=== PATIENT | female | born 1980 | race Caucasian/White ===

== ENCOUNTER → 2016-04-11 | Outpatient (CLI) | payer BC ==
[~2016-04-11] MED LIST: MTR600X PO; PRENTAB26 PO
--- NOTE | 2016-04-11 10:46 | DIAGNOSTIC IMAGING REPORT ---
LEFT FOOT MIN 3 VIEWS ROUTINE CLINICAL HISTORY: Left foot pain COMPARISON: None. DISCUSSION: No acute fractures are visualized. There is a corticated ossicle at the level of the dorsal aspect of the navicular. This is felt to be old. There are no erosive or destructive changes. There is a small plantar calcaneal spur IMPRESSION: 1. No acute fractures 2. No evidence of erosive disease 3. Plantar calcaneal spur 4. Ossicle at the level of the dorsal aspect of the navicular. This is felt to be chronic Electronically signed by: Randy Griggs M.D. 04/11/2016 10:44 AM
== END | disposition home or self-care (01) ==
LOC: C.RAD1850 10:24
PROVIDERS: ATTEND Family Medicine
DX: M79.672 Pain in left foot (principal); M77.32 Calcaneal spur, left foot

== ENCOUNTER → 2017-01-04 | Outpatient (CLI) | payer BC | END | disposition home or self-care (01) | LOC: C.PAPS 14:16 | PROVIDERS: ATTEND Obstetrics & Gynecology | DX: Z01.419 Encounter for gynecological examination (general) (routine) without abnormal findings (principal) ==

== ENCOUNTER → 2017-05-08 | Outpatient (CLI) | payer BC | END | disposition home or self-care (01) | LOC: C.LAB 09:28 | PROVIDERS: ATTEND Obstetrics & Gynecology | DX: Z32.00 Encounter for pregnancy test, result unknown (principal) ==

== ENCOUNTER → 2017-05-16 | Outpatient (CLI) | payer BC | END | disposition home or self-care (01) | LOC: C.LAB 09:32 | PROVIDERS: ATTEND Obstetrics & Gynecology | DX: Z32.00 Encounter for pregnancy test, result unknown (principal) ==

== ENCOUNTER → 2017-05-20 | Outpatient (CLI) | payer BC | END | disposition home or self-care (01) | LOC: C.LAB 09:26 | PROVIDERS: ATTEND Obstetrics & Gynecology | DX: Z32.00 Encounter for pregnancy test, result unknown (principal) ==

== ENCOUNTER → 2017-05-22 | Outpatient (CLI) | payer BC | LOC: C.LAB 09:30 | PROVIDERS: ATTEND Obstetrics & Gynecology | DX: O20.0 Threatened abortion (principal); Z3A.00 Weeks of gestation of pregnancy not specified ==

== ENCOUNTER → 2017-06-25 | Outpatient (CLI) | payer BC ==
[2017-06-25 12:19] LABS: BASO % 0.3 %; BASO ABS # 0.03 K/uL (0-0.2); EOS % 1.2 %; EOS ABS # 0.13 K/uL (0-0.5); HEMATOCRIT 39.2 % (37-47); HEMOGLOBIN 13.5 g/dL (12.0-16.0); IG# 0.03 K/uL (0.00-0.02); LYMPH % 23.1 %; LYMPH ABS # 2.45 K/uL (1.2-3.4); MEAN CELL VOLUME 90.7 fL (80-100); MEAN CORPUSCULAR HEMOGLOBIN 31.3 pg (25-34); MEAN CORPUSCULAR HGB CONC 34.4 g/dl (32-36); MEAN PLATELET VOLUME 11.1 fL (7.4-10.4); MONO % 5.7 %; MONO ABS # 0.61 K/uL (0.11-0.59); NEUT % 69.4 %; NEUT ABS # 7.36 K/uL (1.4-6.5); PLATELET COUNT 248 K/uL (130-400); RED CELL DISTRIBUTION WIDTH CV 13.2 % (11.5-14.5); WHITE BLOOD COUNT 10.61 K/uL (4.8-10.8)
== END | disposition home or self-care (01) ==
LOC: C.LAB1850 10:08
PROVIDERS: ATTEND Obstetrics & Gynecology
DX: Z01.818 Encounter for other preprocedural examination (principal)

== ENCOUNTER 2017-06-26 06:21 | Day surgery (SDC) | payer BC ==
[2017-06-24 15:59] VITALS: BMI 28.0
[~2017-06-26] VITALS: Ht 177.8 cm; Wt 87.7 kg
[~2017-06-26 06:21] MED LIST changes: +LACTATED RINGER'S 1000ML 1,000 ML IV SCH; -MTR600X PO
[2017-06-26 06:45] VITALS: BP 138/74; PULSE 74; TEMP 37.7; O2SAT 100; Ht 177.8 cm; Wt 87.7 kg
--- NOTE | 2017-06-26 07:47 | History & Physical Bridge Note ---
H&P Re-Evaluation Bridge Note: I have examined the patient, reviewed the History & Physical and in the interval since the performance of the History & Physical I have noted the following changes of clinical significance: No changes noted
[2017-06-26] MEDS ORDERED: LIDOCAINE HCL 2% 2 ML VIAL (20MG/ML) ONE (08:23)
[2017-06-26] MEDS ORDERED: ONDANSETRON INJ 2 MG/ML 2 ML VIAL ONE (08:23)
[2017-06-26] MEDS ORDERED: DEXAMETHASONE SOD INJ 4 MG/ML VIAL ONE (08:23)
[2017-06-26] MEDS ORDERED: MIDAZOLAM HCL 1 MG/ML 2ML VIAL ONE (08:23)
[2017-06-26] MEDS ORDERED: FENTANYL CITRATE INJ 50 MCG/1 ML 2 ML VIAL ONE (08:23)
[2017-06-26] MEDS ORDERED: PROPOFOL IV EMULSION 10 MG/ML 20 ML VIAL IV ONE (08:23)
[2017-06-26] MEDS ORDERED: OXYTOCIN INJ 10 UNITS/ML VIAL ONE (08:57)
--- NOTE | 2017-06-26 08:58 | [facility] Post Operative Brief Note ---
Immediate Operative Summary Operative Date Jun 26, 2017. Pre-Operative Diagnosis Missed Post-Operative Diagnosis Same Procedure(s) Performed Dilation and Evacuation Surgeon Dr Rubi Trader Surgeon(s) None Estimated Blood Loss 100ml Findings Consistent with Post-Op Diagnosis Specimens A. products of conception Drains None Anesthesia Type General Complication(s) none Disposition Accompanied Pt To Recover: no Disposition: Recovery Room / PACU
[2017-06-26] MEDS ORDERED: ONDANSETRON INJ 2 MG/ML 2 ML VIAL IV PRN ×2 (09:00)
[2017-06-26] MEDS ORDERED: KETOROLAC TROMETHAMINE 30 MG/ML VIAL IV. PRN ×2 (09:00)
[2017-06-26] MEDS ORDERED: PROMETHAZINE HCL INJ 25 MG in SODIUM CHLORIDE 0.9% 50ML 50 ML IV PRN (09:00)
[2017-06-26] MEDS ORDERED: IBUPROFEN 600 MG TAB PO PRN (09:00)
[2017-06-26] MEDS ORDERED: OXYCODONE/ACETAMINOPHEN 5-325 TAB PO PRN ×2 (09:00)
[2017-06-26] MEDS ORDERED: FENTANYL CITRATE INJ 50 MCG/1 ML 2 ML VIAL IV PRN (09:00)
[2017-06-26] MEDS ORDERED: ATROPINE SULFATE 0.1 MG/ML 5ML SYR IV PRN (09:00)
[2017-06-26] MEDS ORDERED: MTR600X PO (09:01)
--- NOTE | 2017-06-26 09:01 | Discharge Instructions ---
Discharge Instructions Date of Service Jun 26, 2017. Admission Reason for Admission: Missed Discharge Discharge Diagnosis / Problem: mab Discharge Goals Goal(s): Routine recovery after surgery Activity Recommendations Activity Limitations: per Instructions/Follow-up section . Instructions / Follow-Up Instructions / Follow-Up ACTIVITY RECOMMENDATIONS: * Avoid tampons, douching, hot tubs, pools, and intercourse until bleeding has stopped. * May shower as usual. * No strenuous activity for 24-48 hours. After 24-48 hours, you may do anything you feel like doing (driving and sports are okay). SPECIAL CARE INSTRUCTIONS: Special Diet: * Mild nausea may occur in the immediate post-operative period. * Take clear liquids such as tea, cola or bouillon until all nausea has subsided; you may then resume your normal diet. Special Care: * Light bleeding and vaginal spotting can last from a few days to 3-4 weeks. Call your doctor if bleeding becomes heavier than the heaviest part of your period. * Check your temperature twice a day for one week. If it goes above 100.4 degrees Fahrenheit (38.0 Celsius), notify your doctor. * Call your doctor's office for an appointment for 6 weeks after your surgery. FOLLOW-UP VISIT: Call your doctor's office for an appointment for 6 weeks after your surgery. Current Hospital Diet Patient's current hospital diet: Discharge Diet Recommended Diet: Regular Diet Procedures Procedures Performed: Dilation and Evacuation Pending Studies Studies pending at discharge: no Medical Emergencies . Who to Call and When: Medical Emergencies: If at any time you feel your situation is an emergency, please call 911 immediately. . Non-Emergent Contact Non-Emergency issues call your: Coach Wirer . . "Provider Documentation" section prepared by Zach Rubi. .
[2017-06-26 09:55] VITALS: BP 138/67; PULSE 72; TEMP 37.2; O2SAT 99
[2017-06-26] MEDS ORDERED: OXYTOCIN INJ 20 UNITS in SODIUM CHLORIDE 0.9% 1000ML 1,000 ML IV SCH (10:00)
[2017-06-26] MEDS ORDERED: DOXYCYCLINE HYCLATE 100 MG CAP PO ONE (10:00)
[2017-06-26 10:25] VITALS: BP 118/59; PULSE 77; O2SAT 99
[2017-06-26 10:55] VITALS: BP 136/52; PULSE 70; TEMP 37; O2SAT 97
--- NOTE | 2017-06-26 11:36 | Anesthesiology Progress Note ---
Anesthesia Post Op Note Date & Time Jun 26, 2017 at 11:36 Vital Signs Pain Intensity: 3 Vital Signs Past 12 Hours Date Time Temp Pulse Resp B/P (MAP) Pulse Ox O2 Delivery O2 Flow Rate FiO2 06/26/17 10:55 37 70 18 136/52 97 Room Air 06/26/17 10:25 77 18 118/59 99 Room Air 06/26/17 09:55 37.2 72 18 138/67 99 Room Air 06/26/17 09:45 36.8 06/26/17 09:38 84 19 98 06/26/17 09:38 85 19 06/26/17 09:36 141/71 06/26/17 09:33 83 24 100 06/26/17 09:33 84 24 06/26/17 09:31 142/84 06/26/17 09:28 68 24 06/26/17 09:28 66 24 100 06/26/17 09:26 150/86 06/26/17 09:23 83 21 06/26/17 09:23 83 21 100 06/26/17 09:21 153/93 06/26/17 09:18 83 19 06/26/17 09:18 83 19 100 06/26/17 09:16 153/94 06/26/17 09:13 108 17 100 06/26/17 09:13 108 17 06/26/17 09:11 152/101 06/26/17 09:09 135/79 06/26/17 09:08 37.2 65 16 135/79 100 Oxymask 10 06/26/17 06:45 37.7 74 18 138/74 (95) 100 Room Air Notes Mental Status: alert / awake / arousable, participated in evaluation Pt Amnestic to Procedure: Yes Nausea / Vomiting: adequately controlled Pain: adequately controlled Airway Patency, RR, SpO2: stable & adequate BP & HR: stable & adequate Hydration State: stable & adequate Anesthetic Complications: no major complications apparent
--- NOTE | 2017-06-26 11:41 | OPERATIVE REPORT ---
DATE OF OPERATION: 06/26/2017 PREOPERATIVE DIAGNOSIS: Missed . POSTOPERATIVE DIAGNOSIS: Same. PROCEDURE: Dilatation and evacuation. SURGEON: Dr. Rubi. SERVICE GIRL: None. ESTIMATED BLOOD LOSS: 100 mL FINDINGS: Consistent with postop diagnosis. SPECIMENS: Products of conception. DRAINS: None. ANESTHETIC: General. COMPLICATIONS: None. DISPOSITION: Recovery room. Leslye was given a general anesthetic, prepped and draped in dorsal lithotomy position in [facility]. Bladder drained. Uterus examined and found to be slightly anteverted, 8 weeks in size gestation. Weighted speculum placed in the vagina, Allis clamp on the anterior lip of the cervix. Cervix carefully and methodically dilated starting with a #13 dilator and progressing to a #31 dilator sequentially. At this stage, we then placed a 10 mm curved curet and were able to evacuate the contents using suction. Once I felt the products of conception had been removed, performed a sharp curettage and could find no more products of conception. At this stage, IV Pitocin was started. Instruments removed from the cervix and vagina. Bleeding was minimal. The patient was sent to recovery in stable condition. I attest to the content of the Intraoperative Record and any orders documented therein. Any exception s are noted below.
== END 2017-06-26 11:12 | disposition home or self-care (01) ==
LOC: C.ACU 06:21
PROVIDERS: ATTEND Obstetrics & Gynecology
DX: O02.1 Missed abortion (principal); Z98.890 Other specified postprocedural states; Z90.89 Acquired absence of other organs; Z82.49 Family history of ischemic heart disease and other diseases of the circulatory system; Z83.3 Family history of diabetes mellitus; Z84.89 Family history of other specified conditions

== ENCOUNTER 2019-02-12 07:54 | Inpatient (IN) ==
[2019-02-12] MEDS ORDERED: OXYTOCIN 30 UNITS/500 ML BAG IV PRN ×3 (08:05→18:12)
[2019-02-12 08:21] LABS: Hematocrit (blood only) 37.3 % (37-47); Hemoglobin 12.8 g/dL (12.0-16.0); Mean Corpuscular Hemoglobin 32.4 pg (25-34); Mean Corpuscular Volume 94.4 fL (80-100); Mean Platelet Volume 9.9 fL (7.4-10.4); Platelet Count 235 K/uL (130-400); RDW Coefficient of Variation 13.6 % (11.5-14.5); RDW Standard Deviation 46.9 fL (36.4-46.3); Red Blood Count 3.95 M/uL (4.2-5.4); White Blood Count 11.69 K/uL (4.8-10.8)
[2019-02-12 08:28] LABS: Mean Corpuscular Hgb Conc 34.3 g/dL (32-36)
[2019-02-12] MEDS: LACTATED RINGER'S 1,000 ML IV PRN ×3 (09:08→15:20)
--- NOTE | 2019-02-12 09:08 | History & Physical Report ---
Date of Service February 12, 2019 Assessment & Plan (1) : Patient had presented last night for mcintyre bulb at my recommendation, but last night's physican felt like her cervix was stretchable and that mcintyre bulb may not be necessary. Therefore, she was discharged to home and brought back this morning. Per his exam, she is 2cm this AM. Will start pitocin, plan to AROM when able, anticipate . History of Present Illness Chief Complaint: IOL Primary Care Provider: AVILA Bedoya 38yo @ 41 08/12 presents for IOL for postdates. complicated by advanced maternal age, history of gHTN in prior . In this , BPs have been normal. Allergies Allergy/AdvReac Type Severity Reaction Status Date / Time No Known Drug Allergies Allergy Unknown ` Verified 02/12/19 08:11 Home Medications Home Medications Medication Instructions Recorded Confirmed Type PNV cmb#95-ferrous fumarate-FA 1 tab PO DAILY 02/12/19 02/12/19 History [] aspirin 81 mg PO DAILY 02/12/19 02/12/19 History Patient History Medical History Antepartum complication of Gastric ulcer Surgical History History of oral surgery S/P arthroscopic knee surgery S/P dilation and curettage S/P tonsillectomy Family History Father Hypertension Heart disease FH: thromboembolic disease Mother Thyroid disorder Unknown Heart disease Diabetes Social History Preferred Language: Afghan Communication Ability: Effective Beliefs That Will Affect Care: Yazidism Yazidism Beliefs: Hinduism marital status: Current Living Situation: Spouse and Family Other Information That Helps Us Care for You: No Feels Safe at Home: Yes Safety Concerns: Feels Safe At This Time Smoking Status: Never smoker Hx Alcohol Use: No Hx Substance Use: No Review of Systems All systems reviewed & are unremarkable except as noted in HPI & below Physical Exam Physical Exam: FHT Cat 1 [place] no ctx Constitutional: WD/WN, vitals as above Respiratory: normal respiratory effort, lungs clear to auscultation no respiratory distress Cardiovascular: Rate/Rhythm: regular rate and regular rhythm Gastrointestinal (Abdomen): Inspection/Auscultation: abdomen normal to inspection Percussion/Palpation: abdomen soft; abdomen nontender Gravid. No s/s chorio or abruption. Skin: no rashes, warm and dry Psychiatric: A+Ox3, euthymic affect Results & Data Vital Signs (Past 12 Hours) Vital Signs Temp Pulse Resp BP 02/12/19 08:19 36.9 C 78 18 143/85 H 02/12/19 08:08 78 143/85 H
[2019-02-12] MEDS ORDERED: BUPIVACAINE 0.25% 30 ML VIAL ONE (10:31)
[2019-02-12] MEDS ORDERED: fentaNYL citrate 100 MCG/2 ML VIAL ONE (10:31)
[2019-02-12] MEDS ORDERED: ePHEDrine sulfate 50 MG/ML AMP ONE (10:31)
[2019-02-12] MEDS ORDERED: fentaNYL 2MCG/ML ROPIV 1.25MG/ML 100 ML BAG EPI ONE (10:32)
[2019-02-12] MEDS ORDERED: INFLUENZA VIRUS QUAD VACCINE 0.5 ML SYR IM ONE (10:45)
[2019-02-12] MEDS ORDERED: INFLUENZA ADMINISTRATION CHARGE ONE (10:45)
[2019-02-12] MEDS ORDERED: DiphenhydrAMINE HCL 50 MG/ML VIAL IV PRN (11:50)
[2019-02-12] MEDS ORDERED: NALOXONE HCL 0.4 MG/1 ML VIAL/CARP IV PRN (11:50)
[2019-02-12] MEDS ORDERED: NALBUPHINE HCL INJ 10 MG/ML AMP IV PRN (11:50)
[2019-02-12] MEDS ORDERED: ONDANSETRON INJ 2 MG/ML 2 ML VIAL IV PRN (11:50)
[2019-02-12] MEDS ORDERED: ePHEDrine sulfate 50 MG/ML AMP IV PRN (11:50)
[2019-02-12] MEDS ORDERED: PROMETHAZINE HCL 6.25 MG in SODIUM CHLORIDE 0.9% 50 ML IV PRN (11:50)
[2019-02-12] MEDS ORDERED: NALOXONE HCL 1 MG in SODIUM CHLORIDE 0.9% 1000ML 1,000 ML IV PRN (11:50)
[2019-02-12] MEDS ORDERED: fentaNYL 2MCG/ML ROPIV 1.25MG/ML 100 ML BAG EPI PRN (11:50)
--- NOTE | 2019-02-12 11:50 | Anesthesiology Consultation ---
Date of Service February 12, 2019 Assessment & Plan (1) Encounter for pre-operative examination: Chart Review Chart Review: Patient NOT seen in Pre Admission Testing and Acceptable Risk for Labor Epidural ASA ASA2 Proposed Anesthesia Anesthesia Type: Labor Epidural Risk / Benefits Reviewed With: PT / POA / Parent / Guardian, Accepts Plan and Informed Consent Obtained History Height/Weight Height: 5 ft 10 in Weight: 113.398 kg Allergies Allergy/AdvReac Type Severity Reaction Status Date / Time No Known Drug Allergies Allergy Unknown ` Verified 02/12/19 08:11 Medications Home Medications Medication Instructions Recorded Confirmed Last Taken PNV cmb#95-ferrous fumarate-FA 1 tab PO DAILY 02/12/19 02/12/19 02/11/19 [] aspirin 81 mg PO DAILY 02/12/19 02/12/19 02/11/19 Active Medications Generic Name Dose Route Start Last Admin Trade Name Freq PRN Reason Stop Dose Admin Lactated Ringer's 1,000 mls @ 125 mls/hr 02/12/19 08:05 02/12/19 11:12 Lr IV 02/14/19 08:04 999 mls/hr .Q8H PRN Administration L&D Protocol Protocol Oxytocin 30 units in 500 mls @ 7 mls/hr 02/12/19 08:05 02/12/19 11:00 Pitocin IV 02/14/19 08:04 0.42 units/hr .Q24H PRN 7 mls/hr Labor Induction/Augmentation Titration Protocol 0.42 UNITS/HR NPO Date Last Intake of Fluids: 02/12/19 Time Last Intake of Fluids: 09:00 Date Last Intake of Solids: 02/12/19 Time Last Intake of Solids: 07:00 Past Medical History Medical History Antepartum complication of Gastric ulcer Exercise / Class Metabolic Activity II 4-5 Yardwork/Stairs/Walk up hill Past Family History Family History Father Hypertension Heart disease FH: thromboembolic disease Mother Thyroid disorder Unknown Heart disease Diabetes Past Surgical History Surgical History History of oral surgery S/P arthroscopic knee surgery S/P dilation and curettage S/P tonsillectomy Past Anesthesia History No Hx of Anesthesia Complications and No Family Hx of Anesthesia Complications History of PONV No Hx of PONV and No Hx of Motion Sickness Social History Smoking Status: Never smoker Hx Alcohol Use: No Hx Substance Use: No Physical Exam Vital Signs Last Vital Signs Temp 36.7 C 02/12/19 11:00 Pulse 78 02/12/19 11:47 Resp 18 02/12/19 11:00 BP 144/78 H 02/12/19 11:47 Pulse Ox 98 02/12/19 11:44 ENMT Mouth: no dentition abnormality Thyromental Distance: > or= 3.5 Finger Breadths Mallampati Class: II Neck normal visual inspection Respiratory normal respiratory effort Auscultation: lungs clear to auscultation bilaterally Cardiovascular Rate/Rhythm: regular rate and regular rhythm Psychiatric Orientation: alert Testing Laboratory Results 02/12/19 08:12
--- NOTE | 2019-02-12 18:08 | Delivery Summary ---
Vaginal Delivery Summary Date of Service February 12, 2019 Vaginal Delivery Summary Vaginal Delivery Summary: Pre-delivery diagnoses: 38yo @ 41 5/, AMA, IOL for postdates Post-delivery diagnoses: same, 1st degree perineal laceration Procedure: spontaneous vaginal delivery and repair of above Surgeon: Shital Chaves DO Complications: none Findings: Viable male . Apgars: 7/9 . Weight pending, please see nursery records Estimated blood loss: 300ml Description of delivery: The patient progressed to complete with epidural anesthesia. She then began to push. She spontaneously vaginally delivered a viable from the cephalic presentation. The head delivered in TIM position. Nuchal cord x 1, tight but reduced. The anterior shoulder delivered, followed by the posterior shoulder, followed by the body. The baby was placed on mother's abdomen and a spontaneous cry was heard. Delayed cord clamping was employed, and the cord was doubly clamped and cut. Cord blood was obtained. The placenta was delivered spontaneously intact with a 3-vessel cord. The uterus and vagina were swept of clots and debris. IV pitocin was given. The uterus became firm. The cervix, vagina, and perineum were inspected and a small 1st degree perineal laceration was reapproximated in standard fashion with 3-0 vicryl. Excellent hemostasis was observed. The mother and baby are recovering in stable and good condition in the room. Sponge, needle and instrument counts were correct x 2. Shital Chaves DO [facility] [place]
[2019-02-12] MEDS ORDERED: ACETAMINOPHEN 325 MG TAB PO PRN (18:12)
[2019-02-12] MEDS ORDERED: BISACODYL 10 MG SUPP PR PRN (18:12)
[2019-02-12] MEDS ORDERED: DIPHTHERIA/TETANUS/PERTUSSIS 0.5 ML SYR/VIAL IM ONE (18:12)
[2019-02-12] MEDS ORDERED: HYDROCORTISONE ACETATE 25 MG SUPP PR PRN (18:12)
[2019-02-12] MEDS ORDERED: SUPERCREAM 0.870% 15 GM JAR EXT PRN (18:12)
[2019-02-12] MEDS ORDERED: OXYCODONE/ACETAMINOPHEN 5mg/325mg TAB PO PRN (18:12)
[2019-02-12] MEDS ORDERED: BENZOCAINE 20% AER SPR 82.5 GM CAN EXT PRN (18:12)
[2019-02-12] MEDS ORDERED: LABETALOL HCL IV 5 MG/ML 20ML IV STA (18:44)
--- NOTE | 2019-02-12 18:47 | Obstetrical Progress Note ---
Date of Service February 12, 2019 Assessment & Plan (1) : Patient had presented last night for mcintyre bulb at my recommendation, but last night's physican felt like her cervix was stretchable and that mcintyre bulb may not be necessary. Therefore, she was discharged to home and brought back this morning. Per his exam, she is 2cm this AM. Will start pitocin, plan to AROM when able, anticipate . Subjective After delivery, elevated BPs 180s/70s. Pt with h/o elevated blood pressures in prior , this has been normal. Will obtain STAT preeclampsia labs, give dose of labetalol now to reduce BP. Results & Data Vital Signs (Past 12 Hours) Vital Signs Temp Pulse Resp BP Pulse Ox 02/12/19 18:40 89 181/74 H 02/12/19 18:30 99 H 18 190/73 H 02/12/19 18:25 99 H 190/73 H 02/12/19 18:15 93 H 16 173/62 H 02/12/19 18:06 93 H 173/62 H 02/12/19 18:00 16 02/12/19 17:58 87 177/76 H 02/12/19 17:55 90 195/90 H 02/12/19 17:53 37 C 16 02/12/19 17:34 103 H 89 L 02/12/19 17:30 122 H 99 02/12/19 17:25 107 H 99 02/12/19 17:20 109 H 98 02/12/19 17:15 95 H 97 02/12/19 17:10 100 H 98 02/12/19 17:05 95 H 98 02/12/19 17:03 90 143/78 H 02/12/19 17:00 37.0 C 100 H 16 97 02/12/19 16:55 92 H 97 02/12/19 16:50 98 H 98 02/12/19 16:45 90 98 02/12/19 16:40 84 98 02/12/19 16:35 87 97 02/12/19 16:30 88 98 02/12/19 16:25 90 98 02/12/19 16:20 85 98 02/12/19 16:15 91 H 97 02/12/19 16:10 93 H 97 02/12/19 16:05 89 107/52 L 99 02/12/19 16:02 37.1 C 18 02/12/19 16:00 88 97 02/12/19 15:57 108 H 92 02/12/19 15:55 107 H 99 02/12/19 15:50 115 H 98 02/12/19 15:45 105 H 98 02/12/19 15:40 108 H 99 02/12/19 15:35 95 H 118/58 L 98 02/12/19 15:30 100 H 98 02/12/19 15:25 91 H 98 02/12/19 15:20 87 98 02/12/19 15:15 94 H 98 02/12/19 15:09 83 98 02/12/19 15:06 81 139/71 02/12/19 15:05 37.2 C 18 02/12/19 15:04 81 99 02/12/19 14:59 83 98 02/12/19 14:54 84 97 02/12/19 14:49 76 100 02/12/19 14:44 75 99 02/12/19 14:39 77 98 02/12/19 14:35 91 H 122/58 L 02/12/19 14:34 96 H 98 02/12/19 14:29 82 98 02/12/19 14:24 88 99 02/12/19 14:19 91 H 99 02/12/19 14:14 83 98 02/12/19 14:09 87 97 02/12/19 14:05 93 H 128/79 02/12/19 14:04 84 98 02/12/19 14:00 16 02/12/19 13:59 84 97 02/12/19 13:54 84 99 02/12/19 13:49 82 98 02/12/19 13:44 86 99 02/12/19 13:39 81 100 02/12/19 13:36 82 129/58 L 02/12/19 13:34 78 99 02/12/19 13:29 79 99 02/12/19 13:24 88 100 02/12/19 13:19 76 98 02/12/19 13:14 81 99 02/12/19 13:09 84 98 02/12/19 13:05 82 139/64 02/12/19 13:04 82 98 02/12/19 13:00 16 02/12/19 12:59 79 98 02/12/19 12:54 79 99 02/12/19 12:49 84 99 02/12/19 12:44 87 98 02/12/19 12:39 80 99 02/12/19 12:34 82 99 02/12/19 12:29 82 98 02/12/19 12:27 83 134/73 02/12/19 12:24 79 98 02/12/19 12:19 82 99 02/12/19 12:14 84 99 02/12/19 12:12 101 H 136/87 02/12/19 12:09 83 99 02/12/19 12:04 82 99 02/12/19 11:59 78 97 02/12/19 11:55 82 145/73 H 02/12/19 11:54 79 98 02/12/19 11:53 81 147/78 H 02/12/19 11:51 83 147/78 H 02/12/19 11:49 91 H 147/75 H 98 02/12/19 11:47 78 144/78 H 02/12/19 11:45 73 144/79 H 02/12/19 11:44 76 98 02/12/19 11:42 75 144/78 H 02/12/19 11:39 93 H 131/98 100 02/12/19 11:34 76 100 02/12/19 11:29 69 98 02/12/19 11:24 73 98 02/12/19 11:19 84 98 02/12/19 11:14 78 99 02/12/19 11:13 75 137/76 02/12/19 11:09 75 98 02/12/19 11:04 78 99 02/12/19 11:00 36.7 C 18 02/12/19 10:59 76 98 02/12/19 08:19 36.9 C 78 18 143/85 H 02/12/19 08:08 78 143/85 H PG Care Time/CCT Total # of Minutes Spent Total Time Spent with Patient: Total time spent is greater than 50% in coordination of care (as documented) at patient's floor/unit and/or counseling patient:
[2019-02-12 19:39] LABS: Albumin Level 2.5 gm/dl (3.4-5.0); BUN Creatinine Ratio 8.2 (10-20); Calcium 8.5 mg/dl (8.5-10.1); Creatinine Clr Calc Pharmacy 116.8 ml/min; Est GFR (African American) 94.7; Est GFR (Non-African American) 81.7; Potassium 3.5 mmol/L (3.5-5.1)
[2019-02-12 19:42] LABS: Albumin Globulin Ratio 0.6 (0.9-2); Bilirubin,Total 0.7 mg/dl (0.2-1); Total Protein 6.5 gm/dl (6.4-8.2)
[2019-02-12 20:31] LABS: Hematocrit (blood only) 36.9 % (37-47); Hemoglobin 12.8 g/dL (12.0-16.0); Mean Corpuscular Hemoglobin 32.6 pg (25-34); Mean Corpuscular Hgb Conc 34.7 g/dL (32-36); Mean Corpuscular Volume 93.9 fL (80-100); Platelet Count 223 K/uL (130-400); RDW Coefficient of Variation 13.6 % (11.5-14.5); Red Blood Count 3.93 M/uL (4.2-5.4); White Blood Count 20.14 K/uL (4.8-10.8)
[2019-02-12] MEDS: IBUPROFEN 600 MG TAB PO PRN (23:46)
[2019-02-13] MEDS: DOCUSATE SODIUM 100 MG CAP PO SCH ×3 (01:42→20:33)
[2019-02-13] MEDS: IBUPROFEN 600 MG TAB PO PRN ×3 (03:44→17:15)
[2019-02-13 06:53] LABS: Hemoglobin 11.8 g/dL (12.0-16.0)
--- NOTE | 2019-02-13 08:02 | Obstetrical Progress Note ---
Date of Service <Bernardo Archer DO - Last Filed: 02/13/19 08:01> February 13, 2019 Assessment & Plan <Bernardo Archer DO - Last Filed: 02/13/19 08:01> (1) : -PPD#1 -Vitals reviewed, WNL (Tmax 37), continue to monitor BP (max 162/77 the night prior) - GBS -, Blood Type AB+ - Clinically stable. - Feels well today. Eating well, voiding well, ambulating well. - Pain well controlled. - Routine post- care - After discharge will have [address] Chaves. Day #:: 1 Subjective <Bernardo Archer - Last Filed: 02/13/19 08:01> Ambulation: ambulating normally Voiding: no voiding problems Passing Gas:: Yes Diet Tolerance:: regular diet Lochia:: Moderate Feeding Type:: bottle feeding Current Pain Level(1-10): 2 (improves with analgesics) Patient is a 38 PPD#1. Patient states that she is feeling well today and that her pain is well controlled. She has no other complaints at this time. Constitutional: no fever and no chills Respiratory: no cough, no dyspnea and no wheezing Cardiovascular: no chest pain, no dyspnea, no palpitations, no edema and no calf pain Breast: no breast pain Gastrointestinal: no abdominal pain, no nausea and no vomiting Genitourinary (female): no dysuria and no difficulty urinating Neurologic: no headache(s) Physical Exam <Bernardo Garciamagdalene DO [place] Last Filed: 02/13/19 08:01> Constitutional WD/WN, vitals as above Respiratory normal respiratory effort, lungs clear to auscultation Cardiovascular Rate/Rhythm: regular rate and regular rhythm Heart Sounds: normal S1 and normal S2; no click, no gallop, no murmur and no cardiac rub Extremities: no calf tenderness and no edema Gastrointestinal (Abdomen) Inspection/Auscultation: abdomen normal to inspection and normal bowel sounds Percussion/Palpation: abdomen soft; abdomen nontender Genitourinary OB Exam Abdomen: + fundal height Fundus: + firm and + relation to umbilicus (2cm below); not tender and not boggy Results & Data <Bernardo DiorDO ros - Last Filed: 02/13/19 08:01> Vital Signs (Past 12 Hours) Vital Signs Temp Pulse Pulse Resp BP BP Pulse Ox 02/13/19 03:35 36.6 C 66 18 119/82 97 02/12/19 23:45 36.5 C 81 18 143/87 H 98 02/12/19 21:50 36.6 C 80 18 134/74 96 02/12/19 21:24 85 136/92 02/12/19 21:20 93 H 162/77 H 02/12/19 21:19 90 161/78 H 02/12/19 21:11 87 160/76 H 02/12/19 21:10 92 H 18 151/67 H 02/12/19 20:54 150/92 H 02/12/19 20:40 107 H 157/88 H 02/12/19 20:24 96 H 141/68 H 02/12/19 20:11 96 H 151/75 H 02/12/19 20:09 100 H 18 149/75 H Laboratory Results Abnormal lab results 02/12/19 02/12/19 02/12/19 Range/Units 08:12 19:13 19:13 WBC 11.69 H 20.14 H (4.8-10.8) K/uL RBC 3.95 L 3.93 L (4.2-5.4) M/uL Hgb (12.0-16.0) g/dL Hct 36.9 L (37-47) % RDW Std Deviation 46.9 H 47.0 H (36.4-46.3) fL Carbon Dioxide 20 L (21-32) mmol/L BUN/Creatinine Ratio 8.2 L (10-20) Glucose 130 H (70-99) mg/dl Albumin 2.5 L (3.4-5.0) gm/dl Albumin/Globulin Ratio 0.6 L (0.9-2) 02/13/19 Range/Units 06:30 WBC (4.8-10.8) K/uL RBC (4.2-5.4) M/uL Hgb 11.8 L (12.0-16.0) g/dL Hct 35.0 L (37-47) % RDW Std Deviation (36.4-46.3) fL Carbon Dioxide (21-32) mmol/L BUN/Creatinine Ratio (10-20) Glucose (70-99) mg/dl Albumin (3.4-5.0) gm/dl Albumin/Globulin Ratio (0.9-2) Medications Administered Current Inpatient Medications Acetaminophen (Tylenol) 650 mg PO Q6H PRN PRN Reason: Pain/REYES/Fever Stop: 03/14/19 18:11 Benzocaine (Dermoplast Pain Relieving Gering) 1 appln EXT PRN PRN PRN Reason: Perineal Discomfort Stop: 03/14/19 18:11 Bisacodyl (Dulcolax) 5 mg PO 1999 [facility] Stop: 02/13/19 20:01 Bisacodyl (Dulcolax) 10 mg FL DAILY PRN PRN Reason: No BM on 2nd post- day Stop: 03/14/19 18:11 Cocaine HCl (Supercream 0.870%) 1 gm EXT BID PRN PRN Reason: Hemorrhoidal Inflammation Stop: 02/26/19 18:11 Docusate Sodium (Colace) 100 mg PO DAILY@, [facility] Stop: 03/14/19 20:59 Last Admin: 02/13/19 01:42 Dose: Not Given Documented by: Hydrocortisone (Anusol Hc) 25 mg FL BID PRN PRN Reason: Hemorrhoidal Inflammation Stop: 03/14/19 18:11 Oxytocin (Pitocin) 30 units in 500 mls @ 333.333 mls/hr IV .Q1H30M PRN; Protocol PRN Reason: Bleeding Control Stop: 03/14/19 18:11 Ibuprofen (Motrin) 600 mg PO Q4H PRN PRN Reason: Pain/REYES/Cramping/Fever Stop: 03/14/19 18:11 Last Admin: 02/13/19 03:44 Dose: 600 mg Documented by: Oxycodone/Acetaminophen (Percocet 5mg/325mg) 1 tab PO Q4H PRN PRN Reason: Pain not relieved by... Stop: 02/26/19 18:11 Prenat Multivit/Story/Iron/Folic Ac ( Vitamin) 1 tab PO DAILY@ [facility] Stop: 03/15/19 07:59 <Shital Chaves DO - Last Filed: 02/13/19 08:02> Co-Signing Physician Notes Resident Physician Supervision Note: I was present with Dr. Archer during the history and exam. I discussed the case with the resident and agree with the findings and plan as documented in the note. Any exceptions or clarifications are listed here: PPD#1 doing well. Anticipate DC home tomorrow. Documented By: Shital Chaves DO Resident Activity Tracking <Bernardo Archer DO - Last Filed: 02/13/19 08:01> Resident Involvement: Resident Care Provided Care Provided: Adult Hospital Medicine
[2019-02-13] MEDS: PRENATAL VITAMIN 1 TAB PO SCH (08:34)
[2019-02-13 12:57] VITALS: O2SAT 97
[2019-02-13] MEDS ORDERED: BISACODYL 5 MG TABEC PO SCH (20:00)
--- NOTE | 2019-02-14 06:06 | Obstetrical Progress Note ---
Date of Service <Bernardo Garciamagdalene - Last Filed: 02/14/19 06:06> February 14, 2019 Assessment & Plan <Bernardo GarcianDO - Last Filed: 02/14/19 06:06> (1) : -PPD#2 -Vitals reviewed, WNL (Tmax 36.5), continue to monitor BP (max 145/86 yesterday evening) - GBS -, Blood Type AB+ - Clinically stable. - Feels well today. Eating well, voiding well, ambulating well. - Pain well controlled. - Routine post- care - Anticipate discharge today - After discharge will have [address] Chaves. Day #:: 2 Subjective <Bernardo Garciamagdalene - Last Filed: 02/14/19 06:06> Ambulation: ambulating normally Voiding: no voiding problems Passing Gas:: Yes Diet Tolerance:: regular diet Lochia:: Small Feeding Type:: bottle feeding Current Pain Level(1-10): 0 Patient is a 38 PPD#2. Patient states that she is feeling well today and that her pain is well controlled. She has no other complaints at this time. Constitutional: no fever and no chills Respiratory: no cough, no dyspnea and no wheezing Cardiovascular: no chest pain, no dyspnea, no palpitations, no edema and no calf pain Breast: no breast pain Gastrointestinal: no abdominal pain, no nausea and no vomiting Genitourinary (female): no dysuria and no difficulty urinating Neurologic: no headache(s) Physical Exam <Bernardo Garciamagdalene DO [place] Last Filed: 02/14/19 06:06> Constitutional WD/WN, vitals as above Respiratory normal respiratory effort, lungs clear to auscultation Cardiovascular Rate/Rhythm: regular rate and regular rhythm Heart Sounds: normal S1 and normal S2; no click, no gallop, no murmur and no cardiac rub Extremities: + edema (+1); no calf tenderness Gastrointestinal (Abdomen) Inspection/Auscultation: abdomen normal to inspection and normal bowel sounds Percussion/Palpation: abdomen soft; abdomen nontender Genitourinary OB Exam Abdomen: + fundal height Fundus: + firm and + relation to umbilicus (2cm below); not tender and not boggy Results & Data <Bernardo DiorDO ros - Last Filed: 02/14/19 06:06> Vital Signs (Past 12 Hours) Vital Signs Temp Pulse Resp BP 02/13/19 23:30 36.5 C 70 18 118/75 02/13/19 19:20 36.5 C 72 18 120/76 Laboratory Results Abnormal lab results 02/13/19 Range/Units 06:30 Hgb 11.8 L (12.0-16.0) g/dL Hct 35.0 L (37-47) % Medications Administered Current Inpatient Medications Acetaminophen (Tylenol) 650 mg PO Q6H PRN PRN Reason: Pain/REYES/Fever Stop: 03/14/19 18:11 Benzocaine (Dermoplast Pain Relieving [place]) 1 appln EXT PRN PRN PRN Reason: Perineal Discomfort Stop: 03/14/19 18:11 Bisacodyl (Dulcolax) 10 mg MS DAILY PRN PRN Reason: No BM on 2nd post- day Stop: 03/14/19 18:11 Cocaine HCl (Supercream 0.870%) 1 gm EXT BID PRN PRN Reason: Hemorrhoidal Inflammation Stop: 02/26/19 18:11 Docusate Sodium (Colace) 100 mg PO DAILY@, [facility] Stop: 03/14/19 20:59 Last Admin: 02/13/19 20:33 Dose: 100 mg Documented by: Hydrocortisone (Anusol Hc) 25 mg MS BID PRN PRN Reason: Hemorrhoidal Inflammation Stop: 03/14/19 18:11 Oxytocin (Pitocin) 30 units in 500 mls @ 333.333 mls/hr IV .Q1H30M PRN; [place] col PRN Reason: Bleeding Control Stop: 03/14/19 18:11 Ibuprofen (Motrin) 600 mg PO Q4H PRN PRN Reason: Pain/REYES/Cramping/Fever Stop: 03/14/19 18:11 Last Admin: 02/13/19 17:15 Dose: 600 mg Documented by: Oxycodone/Acetaminophen (Percocet 5mg/325mg) 1 tab PO Q4H PRN PRN Reason: Pain not relieved by... Stop: 02/26/19 18:11 Prenat Multivit/[place]/Iron/Folic Ac ( Vitamin) 1 tab PO DAILY@08 [facility] Stop: 03/15/19 07:59 Last Admin: 02/13/19 08:34 Dose: 1 tab Documented by: <Mery Forbes MD, FACOG - Last Filed: 02/14/19 08:06> Co-Signing Physician Notes Resident Physician Supervision Note: I interviewed and examined the patient. Discussed with Dr. Archer and agree with findings and plan as documented in the note. Any exceptions or clarifications are listed here: Doing well. Some mildly elevated blood pressure, but no s/s of pet. Plan d/c later today. Reviewed the s/s of pet. To call with any concerns. BP check in a couple of days. Documented By: Mery Forbes MD, FACOG Resident Activity Tracking <Bernardo Archer DO - Last Filed: 02/14/19 06:06> Resident Involvement: Resident Care Provided Care Provided: OB Delivery
[2019-02-14] MEDS: PRENATAL VITAMIN 1 TAB PO SCH (07:59)
[2019-02-14] MEDS: DOCUSATE SODIUM 100 MG CAP PO SCH (07:59)
[2019-02-14 12:29] VITALS: BP 147/83; PULSE 80; TEMP 98.6
== END 2019-02-14 13:20 | disposition home or self-care (01) | DRG 807 ==
LOC: 4S1 07:54 → 4S2 21:49